=== PATIENT | female | born 1980 | race Caucasian/White ===

== ENCOUNTER → 2017-05-15 | Emergency (ER) | payer OTHER ==
[~2017-05-15] VITALS: Ht 167.6 cm; Wt 77.1 kg
[~2017-05-15] MED LIST: CIPRO500 MG PO; PEPCID40 MG PO; PHENERGAN25 MG PO
== END | disposition home or self-care (01) ==
LOC: ER 02:40
DX: K52.89 Other specified noninfective gastroenteritis and colitis (principal)

== ENCOUNTER 2019-06-15 07:48 | Emergency (ER) | payer OTHER ==
[~2019-06-15] VITALS: Ht 167.6 cm; Wt 61.2 kg
[2019-06-15] MEDS ORDERED: INTESTINEX680 M1 PO (16:01)
[2019-06-15] MEDS ORDERED: ONDANSETRON ODT4 MG SL (16:01)
[2019-06-15] MEDS ORDERED: PEPCID AC20 MG PO (16:01)
== END 2019-06-15 18:50 | disposition home or self-care (01) ==
LOC: ER 07:48
DX: K52.9 Noninfective gastroenteritis and colitis, unspecified (principal)

== ENCOUNTER → 2023-12-08 | Emergency (ER) | payer OTHER ==
[~2023-12-08] VITALS: Ht 167.6 cm; Wt 79.4 kg
[~2023-12-08] MED LIST changes: +INTESTINEX680 M1 PO; +KETOROLAC TROMETHAMINE 60 MG VIAL IM ONE; +LEXAPRO5 MG PO; +ONDANSETRON ODT4 MG SL; +PEPCID AC20 MG PO; +TORADOL60 MG IM; +YAZ 28 TABLET1 EACH PO
== END | disposition home or self-care (01) ==
LOC: ER 09:28
DX: S93.402A Sprain of unspecified ligament of left ankle, initial encounter (principal); S80.01XA Contusion of right knee, initial encounter; W18.39XA Other fall on same level, initial encounter; Y93.89 Activity, other specified; Y92.89 Other specified places as the place of occurrence of the external cause; Y99.9 Unspecified external cause status